=== PATIENT | female | born 1940 | race Caucasian/White ===

== ENCOUNTER 2024-01-19 13:07 | Inpatient (IN) | payer MEDICARE, BC ==
[2024-01-19] MEDS ORDERED: PNEUMONIA PROTOCOL UTILIZED 1 EACH MISC PO PRN (13:33)
--- NOTE | 2024-01-19 13:33 | ED ---
General Adult HPI - General Chief complaint: Nausea/Vomiting/Diarrhea Stated complaint: Pneumonia Time Seen by Provider: 01/19/24 13:15 Source: patient, EMS, RN notes reviewed, old records reviewed Mode of arrival: EMS Limitations: no limitations - History of Present Illness Initial comments: An 83-year-old female who comes to us from [facility]. Patient was seen on Thursday they are told she had pneumonia was sent home on antibiotics. Patient states yesterday she dry heaves a couple of times and then vomited x 1. Patient states since it was getting worse she came back to the hospital today they stated they wanted to come to our hospital because the patient had an elevated lipase and dilated common bile duct on the CAT scan. Patient states they gave her some nausea meds and she is feeling considerably better. Patient denies any abdominal pain at this time. Patient states she is never had a fever but she has had pneumonia many times in the past as well. She does have an occasional cough her had the same thing and she believes she got it from him. Review of Systems ROS Statement: Those systems with pertinent positive or pertinent negative responses have been documented in the HPI. ROS Other: All systems not noted in ROS Statement are negative. Past Medical History Past Medical History: Asthma, COPD Past Psychological History: No Psychological Hx Reported Smoking Status: Former smoker Past Alcohol Use History: None Reported Past Drug Use History: None Reported General Exam - General Exam Comments Initial Comments: GENERAL: Patient is well-developed and well-nourished. Patient is nontoxic and well- hydrated and is in mild distress. ENT: Neck is soft and supple. No significant lymphadenopathy is noted. Oropharynx is clear. Moist mucous membranes. Neck has full range of motion without eliciting any pain. EYES: The sclera were anicteric and conjunctiva were pink and moist. Extraocular movements were intact and pupils were equal round and reactive to light. Eyelids were unremarkable. PULMONARY: Unlabored respirations. Good breath sounds bilaterally. No audible rales rhonchi or wheezing was noted. CARDIOVASCULAR: There is a regular rate and rhythm without any murmurs gallops or rubs. ABDOMEN: Soft and nontender with normal bowel sounds. SKIN: Skin is clear with no lesions or rashes and otherwise unremarkable. NEUROLOGIC: Patient is alert and oriented x3. Cranial nerves II through XII are grossly intact. Motor and sensory are also intact. Normal speech, volume and content. Symmetrical smile. MUSCULOSKELETAL: Normal extremities with adequate strength and full range of motion. LYMPHATICS: No significant lymphadenopathy is noted PSYCHIATRIC: Normal psychiatric evaluation. Limitations: no limitations Course Vital Signs 01/19/24 13:15 Temperature 98.1 F Pulse Rate 64 Respiratory 18 Rate Blood Pressure 121/69 O2 Sat by Pulse 92 L Oximetry Medical Decision Making - Medical Decision Making Was pt. sent in by a medical professional or institution (, PA, CRUSHING MACHINE OPERATOR, urgent care, hospital, or long term...) When possible be specific @ -Sent to us by [facility] Did you speak to anyone other than the patient for history (EMS, parent, family, police, friend...)? What history was obtained from this source @ -ER physician at [place] spoke with us about the patient prior to arrival Did you review nursing and triage notes (agree or disagree)? Why? @ -I reviewed and agree with nursing and triage notes Were old charts reviewed (outside hosp., previous admission, EMS record, old EKG, old radiological studies, urgent care reports/EKG's, long term records)? Report findings @ -I reviewed all the outside hospital lab work and charting and CAT scan and x- ray and this patient Differential Diagnosis (chest pain, altered mental status, abdominal pain women, abdominal pain men, vaginal bleeding, weakness, fever, dyspnea, syncope, headache, dizziness, GI bleed, back pain, seizure, CVA, palpatations, mental health, musculoskeletal)? @ -Differential Dyspnea: Coronary syndrome, arrhythmia, tamponade, asthma, COPD, pulmonary embolism, pneumonia, pneumothorax, pulmonary effusion, anaphylaxis, diabetic ketoacidosis, flailed chest, pulmonary contusion, diaphragmatic rupture, anemia, neuromuscular, this is not meant to be an all-inclusive list. EKG interpreted by me (3pts min.). @ -As above X-rays interpreted by me (1pt min.). @ -None done CT interpreted by me (1pt min.). @ -None done U/S interpreted by me (1pt. min.). @ -None done What testing was considered but not performed or refused? (CT, X-rays, U/S, labs)? Why? @ -None What meds were considered but not given or refused? Why? @ -None Did you discuss the management of the patient with other professionals (professionals i.e. , PA, CRUSHING MACHINE OPERATOR, lab, RT, psych nurse, rn social work, travel professional, teacher, security officer, case filler)? Give summary @ -No Was smoking cessation discussed for >3mins.? @ -No Was critical care preformed (if so, how long)? @ -No Were there social determinants of health that impacted care today? How? (Homelessness, low income, unemployed, alcoholism, drug addiction, transportation, low edu. Level, literacy, decrease access to med. care, long term, rehab)? @ -No Was there de-escalation of care discussed even if they declined (Discuss DNR or withdrawal of care, Hospice)? DNR status @ -No What co-morbidities impacted this encounter? (DM, HTN, Smoking, COPD, CAD, Cancer, CVA, ARF, Chemo, Hep., AIDS, mental health diagnosis, sleep apnea, morbid obesity)? @ -None Was patient admitted / discharged? Hospital course, mention meds given and route, prescriptions, significant lab abnormalities, going to OR and other pertinent info. @ -I spoke with [facility] hospitalist and they agreed to admit the patient I admitted the patient for pneumonia and I repeated lab work for the elevated lipase. Also received a fluid bolus here Undiagnosed new problem with uncertain prognosis? @ -No Drug Therapy requiring intensive monitoring for toxicity (Heparin, Nitro, Insulin, Cardizem)? @ -No Were any procedures done? @ -No Diagnosis/symptom? @ -Pneumonia Acute, or Chronic, or Acute on Chronic? @ -Acute Uncomplicated (without systemic symptoms) or Complicated (systemic symptoms)? @ -Complicated Side effects of treatment? @ -No Exacerbation, Progression, or Severe Exacerbation? @ -No Poses a threat to life or bodily function? How? (Chest pain, [place], [place], pneumonia, PE, COPD, DKA, ARF, appy, cholecystitis, CVA, Diverticulitis, Homicidal, Suicidal, threat to staff... and all critical care pts) @ -No Diagnosis/symptom? @ -Elevated lipase Acute, or Chronic, or Acute on Chronic? @ -Acute Uncomplicated (without systemic symptoms) or Complicated (systemic symptoms)? @ -complicated Side effects of treatment? @ -None Exacerbation, Progression, or Severe Exacerbation] @ -No Poses a threat to life or bodily function? @ -No Diagnosis/symptom? @ -Acute vomiting Acute, or Chronic, or Acute on Chronic? @ -Acute Uncomplicated (without systemic symptoms) or Complicated (systemic symptoms)? @ -Uncomplicated Side effects of treatment? @ -None Exacerbation, Progression, or Severe Exacerbation] @ -No Poses a threat to life or bodily function? @ -No Disposition Clinical Impression: Vomiting, Elevated lipase, Pneumonia Disposition: ADMITTED IP TO THIS HOSP Referrals: Tomás Madsen MD [Primary Care Provider] - 1-2 days Time of Disposition: 13:33
[2024-01-19] MEDS ORDERED: ALBUTEROL HFA INHALER INHALATION PRN (15:15)
[2024-01-19 16:00] LABS: Basophils % (A) 0 %; Eosinophils # (A) 0.2 k/uL (0-0.7); Eosinophils % (A) 3 %; HCT 31.4 % (34.0-46.0); HGB 9.8 gm/dL (11.4-16.0); Hypochromasia Slight; Lymphocytes # (A) 0.5 k/uL (1.0-4.8); Lymphocytes % (A) 9 %; MCH 32.9 pg (25.0-35.0); MCHC 31.3 g/dL (31.0-37.0); MCV 105.4 fL (80.0-100.0); Macrocytosis Slight; Mean Platelet Volume 7.6; Monocytes # (A) 0.2 k/uL (0-1.0); Monocytes % (A) 4 %; Neutrophils % (A) 83 %; Platelet Count 272 k/uL (150-450); RBC 2.98 m/uL (3.80-5.40); RDW 12.7 % (11.5-15.5); WBC 6.1 k/uL (3.8-10.6)
[2024-01-19] MEDS: SODIUM CHLORIDE 0.9% 1,000 ML IV SCH (16:07)
[2024-01-19 16:46] LABS: ALT 26 U/L (4-34); AST 45 U/L (14-36); African American GFR (CKD) 87 (>60 ml/min/1.73 sqM); Albumin 3.1 g/dL (3.5-5.0); Alkaline Phosphatase 54 U/L (38-126); Anion Gap 8 mmol/L; Blood Urea Nitrogen 35 mg/dL (7-17); Calcium 7.8 mg/dL (8.4-10.2); Carbon Dioxide 18 mmol/L (22-30); Chloride 109 mmol/L (98-107); Glucose 84 mg/dL (74-99); Non-African American GFR(CKD) 76 (>60 ml/min/1.73 sqM); Sodium 135 mmol/L (137-145); Total Bilirubin 0.7 mg/dL (0.2-1.3); Total Protein 6.1 g/dL (6.3-8.2)
[2024-01-19] MEDS: SYMBICORT 80-4.5 MCG INHALER INHALATION SCH (20:03)
[2024-01-19] MEDS: PRAVASTATIN SODIUM 20 MG TAB PO SCH (20:19)
[2024-01-20] MEDS: AZITHROMYCIN 500 MG TAB PO SCH (07:49)
[2024-01-20] MEDS: LEVOTHYROXINE 88 MCG TAB PO SCH (07:49)
[2024-01-20] MEDS: EZETIMIBE 10 MG TAB PO SCH (07:49)
[2024-01-20] MEDS: VENLAFAXINE HCL ER 37.5 MG CAP PO SCH (07:49)
[2024-01-20] MEDS: MONTELUKAST 10 MG TAB PO SCH (07:49)
[2024-01-20 08:42] LABS: HCT 28.2 % (37.2-46.3); HGB 9.4 g/dL (12.0-15.0); MCH 35.5 pg (27.0-32.0); MCHC 33.3 g/dL (32.0-37.0); MCV 106.4 FL (80.0-97.0); Mean Platelet Volume 8.8 FL (9.5-12.2); NRBC Per 100 WBC 0 X 10*3/uL (0.00-0.01); Platelet Count 255 X 10*3/uL (140-440); RBC 2.65 X 10*6/uL (4.10-5.20); RDW 13.5 % (11.5-14.5); WBC 7.51 X 10*3/uL (4.50-10.00)
--- NOTE | 2024-01-20 08:43 | XR ---
EXAMINATION TYPE: XR chest 2V DATE OF EXAM: 01/20/2024 6:29 AM CLINICAL INDICATION:Female, 83 years old with history of pneumonia; COMPARISON: CT 01/19/2024. TECHNIQUE: XR chest 2V Frontal and lateral views of the chest. FINDINGS: Lungs/Pleura: Increased interstitial lung markings in lung bases seen on CT from one day prior. There is no evidence of pleural effusion, focal consolidation, or pneumothorax. Pulmonary vascularity: Unremarkable. Heart/mediastinum: Cardiomediastinal silhouette is unremarkable. Musculoskeletal: No acute osseous pathology. IMPRESSION: Chronic lung changes in the base as seen on prior CT. Superimposed infection is not excluded.
[2024-01-20] MEDS: TIMOLOL 0.5% OPHTH DROPS 5 ML BTL BOTH EYES SCH (08:48)
[2024-01-20 08:50] LABS: ALT 25 U/L (8-44); AST 21 U/L (13-35); Albumin 3.2 g/dL (3.8-4.9); Albumin/Globulin Ratio 1.33 Ratio (1.60-3.17); Alkaline Phosphatase 63 U/L (41-126); BUN/Creat Ratio 35.57 Ratio (12.00-20.00); Blood Urea Nitrogen 24.9 mg/dL (9.0-27.0); Calcium 7.8 mg/dL (8.7-10.3); Carbon Dioxide 19.6 mmol/L (21.6-31.8); Chloride 104 mmol/L (96-109); Globulin 2.4 g/dL (1.6-3.3); Glucose 81 mg/dL (70-110); Potassium 3.4 mmol/L (3.5-5.5); Sodium 135 mmol/L (135-145); Total Bilirubin <0.2 mg/dL (0.3-1.2); Total Protein 5.6 g/dL (6.2-8.2)
[2024-01-20 09:57] LABS: Basophils # (A) 0.02 X 10*3/uL (0.00-0.10); Basophils % (A) 0.3 %; Eosinophils # (A) 0.24 X 10*3/uL (0.04-0.35); Eosinophils % (A) 3.2 %; Lymphocytes # (A) 0.87 X 10*3/uL (0.90-5.00); Lymphocytes % (A) 11.6 %; Macrocytosis (M) 2+; Monocytes # (A) 0.44 X 10*3/uL (0.20-1.00); Monocytes % (A) 5.9 %; Neutrophils % (A) 78.5 %
[2024-01-20] MEDS: SPIRONOLACTONE-HCTZ 25-25MG 1 EACH TAB PO SCH (11:31)
--- NOTE | 2024-01-20 11:37 | P.CONS ---
History of Present Illness - Reason for Consult Consult date: 01/20/24 Pancreatitis, dilated bile duct Requesting physician: Derrick Lipscomb - Chief Complaint Weakness, nausea - History of Present Illness This is a pleasant 83-year-old female with recent hospitalization to [facility] for pneumonia and started on Augmentin and doxycycline and sent home on 01/17/2024. Patient states she continued to feel weak, had nausea with some dry heaves after being on her antibiotics and went back to the emergency department. She had lab work done that showed very mild elevation of her lipase at 468 with without elevation of LFTs. They did a CAT scan of chest abdomen pelvis which had reported dilation of central and peripheral bile ducts likely related to prior cholecystectomy also noted on prior CT scan of 2020. Common bile duct 2.1 cm and pancreatic duct dilated at the and could not process measuring 7 mm. Patient was transferred to [facility] for gastroenterology consultation for elevated lipase and dilated common bile duct on CT scan. Patient states she never had any abdominal pain, she had a couple episodes of nausea with dry heaves but no actual vomiting. She has been afebrile. She has been hospitalized multiple times for pneumonia. No previous history of pancreatitis. She has history of remote cholecystectomy. She currently denies any abdominal pain, nausea or vomiting. Has some shortness of breath but states this has been ongoing with her pneumonia. Labs from [facility] 01/19/2024 WBC 12.6 hemoglobin 10.7 platelet count 236,007 sodium 130 potassium 3.5 BUN 47 creatinine 1.0 alkaline phosphatase 82 ALT 30 AST 36 total bilirubin 0.5 lipase 486 Today's labs WBC 7.5 hemoglobin 9.4 platelet count 255,000 sodium 135 potassium 3.4 BUN 24 creatinine 0.7 total bilirubin less than 0.2 AST 21 ALT 25 alkaline phosphatase 63 lipase 16 Review of Systems REVIEW OF SYSTEMS: CARDIOPULMONARY: No chest pain. Positive shortness of breath. Gastrointestinal: No abdominal pain. No nausea or vomiting. No hematemesis, coffee-ground emesis. No rectal bleeding, or melena. GENITOURINARY: No dysuria or hematuria. MUSCULOSKELETAL: Reports normal range of motion., Joint pain. SKIN: No rashes. No jaundice. ENDOCRINE: No chills, fevers. No excessive weight gain or loss. No polydipsia or polyuria. PSYCHIATRIC: Unremarkable. NEUROLOGY: No change in mental status. Denies dizziness, headache. ENT: Vision unremarkable. CONSTITUTIONAL: No recent weight loss. No fever, chills, night sweats. Generalized weakness. Past Medical History Past Medical History: Asthma, COPD Additional Past Medical History / Comment(s): colitis, gluacoma right eye, [place] wears hearing aids. History of Any Multi-Drug Resistant Organisms: None Reported Past Psychological History: No Psychological Hx Reported Smoking Status: Former smoker Past Alcohol Use History: None Reported Past Drug Use History: None Reported Medications and Allergies Home Medications Medication Instructions Recorded Confirmed Type Albuterol Sulfate [Albuterol 2 puff PO RT-Q6H PRN 01/19/24 01/19/24 History Sulfate Hfa] Alendronate Sodium [Fosamax] 70 mg PO NGUYEN 01/19/24 01/19/24 History Amoxic-Pot Clav 875-125Mg 1 tab PO BID 01/19/24 01/19/24 History [Augmentin 875-125] Doxycycline Hyclate 100 mg PO BID 01/19/24 01/19/24 History Ezetimibe [Zetia] 10 mg PO DAILY 01/19/24 01/19/24 History Famotidine [Pepcid] 20 mg PO DAILY 01/19/24 01/19/24 History Fluticasone Propion/Salmeterol 2 puff INHALATION RT-BID 01/19/24 01/19/24 History [Fluticasone-Salmeterol 250-50] Latanoprost [Latanoprost 0.005%] 1 drop BOTH EYES HS 01/19/24 01/19/24 History Levothyroxine Sodium [Synthroid] 88 mcg PO DAILY 01/19/24 01/19/24 History Montelukast [Singulair] 10 mg PO DAILY 01/19/24 01/19/24 History Pravastatin Sodium [Pravachol] 20 mg PO HS 01/19/24 01/19/24 History Spironolactone-Hctz 25-25Mg 1 tab PO DAILY 01/19/24 01/19/24 History [Aldactazide 25-25Mg] Timolol 0.5% Ophth Soln [Timoptic 1 drop BOTH EYES DAILY 01/19/24 01/19/24 History 0.5% Ophth Soln] Venlafaxine HCl ER [Effexor Xr] 37.5 mg PO DAILY 01/19/24 01/19/24 History Allergies Allergy/AdvReac Type Severity Reaction Status Date / Time No Known Allergies Allergy Verified 01/19/24 13:49 Physical Exam Vitals: Vital Signs Temp Pulse Pulse Resp BP BP Pulse Ox 01/20/24 00:29 97.7 F 77 20 135/70 90 L 01/19/24 18:35 97.6 F 61 18 152/62 97 01/19/24 18:14 62 18 134/87 97 01/19/24 16:08 60 18 133/65 95 01/19/24 15:43 71 18 121/65 94 L 01/19/24 13:15 98.1 F 64 18 121/69 92 L Intake and Output 01/19/24 01/20/24 01/20/24 22:59 06:59 14:59 Other: Voiding Method Toilet # Voids 4 Weight 39.916 kg General appearance: The patient is alert, oriented, appears in no acute distress. HET: Head is normocephalic and atraumatic. Conjunctiva pink. Sclera anicteric. Neck: Supple without lymphadenopathy. Trachea midline. Heart: Regular. Lungs: Equal expansion, normal respiratory effort. Abdomen: Soft, nontender, nondistended. Skin: No rashes. No jaundice. Extremities: Normal skin color and turgor. No pedal edema. Neurological: No focal deficits. Alert and oriented x3. Results CBC & Chem 7: 01/20/24 03:03 01/20/24 03:03 Labs: Abnormal Lab Results - Last 24 Hours (Table) 01/19/24 01/19/24 Range/Units 15:39 15:39 RBC 2.98 L (3.80-5.40) m/uL Hgb 9.8 L (11.4-16.0) gm/dL Hct 31.4 L (34.0-46.0) % MCV 105.4 H (80.0-100.0) fL Lymphocytes # 0.5 L (1.0-4.8) k/uL Sodium 135 L (137-145) mmol/L Chloride 109 H (98-107) mmol/L Carbon Dioxide 18 L (22-30) mmol/L BUN 35 H (7-17) mg/dL Calcium 7.8 L (8.4-10.2) mg/dL AST 45 H (14-36) U/L Total Protein 6.1 L (6.3-8.2) g/dL Albumin 3.1 L (3.5-5.0) g/dL Comments: CT abdomen pelvis with IV contrast done 01/19/2024 at [facility] Impression reads subtle linear densities in the anterior right upper lobe since the previous examination and may represent atelectasis or developing infiltrate. Bronchiectatic changes at the lung bases bilaterally with peribronchial thickening in the left lower lobe and may be related to inflammatory process. There are patchy opacities also noted in the lingula related to mild inflammatory process. There is mucous plugging also suggested. Reactive stable mediastinal adenopathy. No acute pulmonary embolism. Status postcholecystectomy. The common bile duct is dilated at 2.1 cm as previously. The pancreatic duct at that cannot process is also dilated at 7 mm. Please correlate with clinical and laboratory data. Consider MRCP examination. Sigmoid diverticulosis without any surrounding inflammatory change. There is fluid within the ascending colon and few scattered small bowel loops. These findings may be related to diarrhea enterocolitis please correlate clinically. Assessment and Plan (1) Dilation of biliary tract Narrative/Plan: 83-year-old female was being seen at her local hospital in [place] for recent diagnosis of pneumonia was discharged from the emergency department Augmentin and doxycycline. The following day she was continuing to feel weak and had some nausea and dry heaves after starting her antibiotics. Going back to the emergency department she had a mildly elevated lipase of [address] abdomen and pelvis which showed CBD dilation and pancreatic duct dilation which was noted on CT of the abdomen dated November 30, 2020 according to report. This in a patient without any abdominal pain and no elevated LFTs, these are likely chronic findings. Will order MRCP to evaluate possible ampullary lesion however this can be done as an outpatient. Current Visit: Yes Status: Acute Code(s): K83.8 - OTHER SPECIFIED DISEASES OF BILIARY TRACT SNOMED Code(s): 256354286 (2) Elevated lipase Narrative/Plan: Mildly elevated lipase unclear etiology, likely dehydration, no abdominal pain and no evidence of pancreatitis on CT of abdomen. Current Visit: Yes Status: Acute Code(s): R74.8 - ABNORMAL LEVELS OF OTHER SERUM ENZYMES SNOMED Code(s): 495739110 (3) Nausea and vomiting Narrative/Plan: Patient with nausea and dry heaves times 2 episodes prior to going to the emergency department and [place]. Symptoms completely resolved with antiemetics. No further nausea or vomiting. Likely secondary to antibiotic therapy. Current Visit: Yes Status: Acute Code(s): R11.2 - NAUSEA WITH VOMITING, UNSPECIFIED SNOMED Code(s): 42222638 (4) Pneumonia Current Visit: Yes Status: Acute Code(s): J18.9 - PNEUMONIA, UNSPECIFIED ORGANISM SNOMED Code(s): 606471863 Plan: 1. Continue symptomatic and supportive care 2. Antiemetics as needed 3. Repeat CBC CMP, lipase 4. MRCP ordered to evaluate for possible ampullary lesion. However if plan is for discharge patient can have this done as an outpatient, as she is requesting to be discharged. 5. Full liquid diet, then advance as tolerated 6. No plans on endoscopic evaluation on this patient 7. Rest of medical management per primary medical team Thank you for this consultation, we will continue to follow. Dr. Yvonne Richter I agree with the dictator's note, documented as a scribe by Carmen Villegas.
--- NOTE | 2024-01-20 13:00 | P.HPIM ---
History of Present Illness H&P Date: 01/20/24 History of present illness; patient is a 83-year-old lady with past medical history significant for COPD, hyper tension, hyperlipidemia who was sent as a transfer from [facility]. She stated that she initially presented to the [facility] a couple of days ago at which time she was diagnosed with pneumonia and was discharged on antibiotics. Patient stated that after going home she was having vomiting and was feeling nausea. Patient did not feel well so she presented back to [facility] at which time did a CT of the abdomen and blood work. Blood work showed elevated lipase in the wanted patient to be transferred to [facility] for further evaluation by GI. Patient denies any chest pain. There is no complaint shortness of breath. Denies any lightheaded or dizziness. Patient was complaining of low-grade fevers prior to coming. Because of this, patient was transferred to [facility] and admitted to internal medicine service REVIEW OF SYSTEMS: CONSTITUTIONAL: No fever, no malaise, no fatigue. HEENT: No recent visual problems or hearing problems. Denied any sore throat. CARDIOVASCULAR: No chest pain, orthopnea, PND, no palpitations, no syncope. PULMONARY: No shortness of breath, no cough, no hemoptysis. GASTROINTESTINAL: As mentioned above NEUROLOGICAL: No headaches, no weakness, no numbness. HEMATOLOGICAL: Denies any bleeding or petechiae. GENITOURINARY: Denies any burning micturition, frequency, or urgency. MUSCULOSKELETAL/RHEUMATOLOGICAL: Denies any joint pain, swelling, or any muscle pain. ENDOCRINE: Denies any polyuria or polydipsia. The rest of the 14-point review of systems is negative. PHYSICAL EXAMINATION: GENERAL: The patient is alert and oriented x3, not in any acute distress. Well developed, well nourished. HEENT: Pupils are round and equally reacting to light. EOMI. No scleral icterus. No conjunctival pallor. Normocephalic, atraumatic. No pharyngeal erythema. No thyromegaly. CARDIOVASCULAR: S1 and S2 present. No murmurs, rubs, or gallops. PULMONARY: Chest is clear to auscultation, no wheezing or crackles. ABDOMEN: Soft, nontender, nondistended, normoactive bowel sounds. No palpable organomegaly. MUSCULOSKELETAL: No joint swelling or deformity. EXTREMITIES: No cyanosis, clubbing, or pedal edema. NEUROLOGICAL: Gross neurological examination did not reveal any focal deficits. SKIN: No rashes. Assessment and plan Nausea and vomiting Elevated lipase, symptoms not suggestive of acute pancreatitis Dilated common bile duct Bacterial pneumonia Hypertension Hyperlipidemia COPD Monitor vital signs Monitor CBC Monitor CMP Start IV fluids Start antiemetics Start with Rocephin azithromycin Ordered MRCP Resume home meds Consult GI Labs and medication were reviewed.. Continue same treatment. Continue with symptomatic treatment. Resume home medication. Monitor labs and vitals. DVT and GI prophylaxis. Further recommendations as per clinical course of the patient Dictation was produced using [employer] dictation software. please excuse any grammatical, word or spelling errors. Past Medical History Past Medical History: Asthma, COPD Additional Past Medical History / Comment(s): colitis, gluacoma right eye, [place] wears hearing aids. History of Any Multi-Drug Resistant Organisms: None Reported Past Psychological History: No Psychological Hx Reported Smoking Status: Former smoker Past Alcohol Use History: None Reported Past Drug Use History: None Reported Medications and Allergies Home Medications Medication Instructions Recorded Confirmed Type Albuterol Sulfate [Albuterol 2 puff PO RT-Q6H PRN 01/19/24 01/19/24 History Sulfate Hfa] Alendronate Sodium [Fosamax] 70 mg PO NGUYEN 01/19/24 01/19/24 History Amoxic-Pot Clav 875-125Mg 1 tab PO BID 01/19/24 01/19/24 History [Augmentin 875-125] Doxycycline Hyclate 100 mg PO BID 01/19/24 01/19/24 History Ezetimibe [Zetia] 10 mg PO DAILY 01/19/24 01/19/24 History Famotidine [Pepcid] 20 mg PO DAILY 01/19/24 01/19/24 History Fluticasone Propion/Salmeterol 2 puff INHALATION RT-BID 01/19/24 01/19/24 History [Fluticasone-Salmeterol 250-50] Latanoprost [Latanoprost 0.005%] 1 drop BOTH EYES HS 01/19/24 01/19/24 History Levothyroxine Sodium [Synthroid] 88 mcg PO DAILY 01/19/24 01/19/24 History Montelukast [Singulair] 10 mg PO DAILY 01/19/24 01/19/24 History Pravastatin Sodium [Pravachol] 20 mg PO HS 01/19/24 01/19/24 History Spironolactone-Hctz 25-25Mg 1 tab PO DAILY 01/19/24 01/19/24 History [Aldactazide 25-25Mg] Timolol 0.5% Ophth Soln [Timoptic 1 drop BOTH EYES DAILY 01/19/24 01/19/24 History 0.5% Ophth Soln] Venlafaxine HCl ER [Effexor Xr] 37.5 mg PO DAILY 01/19/24 01/19/24 History Allergies Allergy/AdvReac Type Severity Reaction Status Date / Time No Known Allergies Allergy Verified 01/19/24 13:49 Physical Exam Vitals: Vital Signs Temp Pulse Pulse Resp BP BP Pulse Ox 01/20/24 06:55 98.9 F 60 16 121/60 91 L 01/20/24 00:29 97.7 F 77 20 135/70 90 L 01/19/24 18:35 97.6 F 61 18 152/62 97 01/19/24 18:14 62 18 134/87 97 01/19/24 16:08 60 18 133/65 95 01/19/24 15:43 71 18 121/65 94 L 01/19/24 13:15 98.1 F 64 18 121/69 92 L Intake and Output 01/19/24 01/20/24 01/20/24 22:59 06:59 14:59 Other: Voiding Method Toilet # Voids 4 1 Weight 39.916 kg Results CBC & Chem 7: 01/20/24 03:03 01/20/24 03:03 Labs: Abnormal Lab Results - Last 24 Hours (Table) 01/19/24 01/19/24 01/20/24 Range/Units 15:39 15:39 03:03 RBC 2.98 L 2.65 L (3.80-5.40) m/uL Hgb 9.8 L 9.4 L (11.4-16.0) gm/dL Hct 31.4 L 28.2 L (34.0-46.0) % MCV 105.4 H 106.4 H (80.0-100.0) fL MCH 35.5 H (27.0-32.0) pg MPV 8.8 L (9.5-12.2) FL Lymphocytes # 0.5 L (1.0-4.8) k/uL Sodium 135 L (137-145) mmol/L Potassium (3.5-5.5) mmol/L Chloride 109 H (98-107) mmol/L Carbon Dioxide 18 L (22-30) mmol/L BUN 35 H (7-17) mg/dL BUN/Creatinine Ratio (12.00-20.00) Ratio Calcium 7.8 L (8.4-10.2) mg/dL Total Bilirubin (0.3-1.2) mg/dL AST 45 H (14-36) U/L Total Protein 6.1 L (6.3-8.2) g/dL Albumin 3.1 L (3.5-5.0) g/dL Albumin/Globulin Ratio (1.60-3.17) Ratio / Range/Units 03:03 RBC (3.80-5.40) m/uL Hgb (11.4-16.0) gm/dL Hct (34.0-46.0) % MCV (80.0-100.0) fL MCH (27.0-32.0) pg MPV (9.5-12.2) FL Lymphocytes # (1.0-4.8) k/uL Sodium (137-145) mmol/L Potassium 3.4 L (3.5-5.5) mmol/L Chloride (98-107) mmol/L Carbon Dioxide 19.6 L (22-30) mmol/L BUN (7-17) mg/dL BUN/Creatinine Ratio 35.57 H (12.00-20.00) Ratio Calcium 7.8 L (8.4-10.2) mg/dL Total Bilirubin <0.2 L (0.3-1.2) mg/dL AST (14-36) U/L Total Protein 5.6 L (6.3-8.2) g/dL Albumin 3.2 L (3.5-5.0) g/dL Albumin/Globulin Ratio 1.33 L (1.60-3.17) Ratio
[2024-01-20] MEDS: LOPERAMIDE 2 MG CAP PO PRN (14:04)
[2024-01-20] MEDS: ONDANSETRON 4 MG/2 ML VIAL IVP PRN (23:18)
--- NOTE | 2024-01-21 13:17 | MR ---
EXAMINATION TYPE: MR MRCP DATE OF EXAM: 01/21/2024 12:09 PM CLINICAL INDICATION:Female, 83 years old with history of CBD dilation and pancreatic duct dilation on CT; PHH, CBD dilation and pancreatic duct dilation on CT. Rule out ampullary lesion, CBD dilation si nce 2020. COMPARISON: 01/19/2024. TECHNIQUE: Multi planar, T2-weighted imaging with and without fat saturation and chemical shift imag ing was performed of the abdomen. Then, heavily T2 weighted imaging (half-Fourier acquisition single- shot turbo spin-echo) was utilized in order to study the biliary system. Maximum intensity projectio n images were reconstructed from the original data of the biliary tree. 3D images were created on a [employer] work station. No Gadolinium given. FINDINGS: Lower Thorax: No evidence for acute process. The heart is mildly enlarged for size. Left lower lobe i ncreased signal. MRCP: * The intrahepatic ducts are dilated * The common hepatic duct measures 19 mm in size. * The common bile duct at the level of the pancreatic head measures 18 mm in size. * The pancreatic duct is dilated up to 7 mm. * The gallbladder is surgically absent there is dilation of the biliary system. Abdomen: Liver: No evidence for hepatic steatosis or cirrhosis. Pancreas: Main pancreatic duct is dilated measuring up to 7 mm extending into the tail. No evidence f or solid mass. Spleen: Normal for size. Adrenal glands: Unremarkable. Kidneys: No evidence for obstructive uropathy. No suspicious renal masses. Stomach and Bowel: No evidence for bowel wall thickening or evidence for obstruction. Retroperitoneum/Peritoneum: No evidence of pneumoperitoneum or free fluid. Vasculature: No aortic aneurysm. Musculoskeletal: Multilevel degeneration changes spine with scoliotic curvature. Lymph Nodes: No gross evidence for lymphadenopathy. Abdominal wall: Unremarkable. IMPRESSION: 1. Dilation of the extrahepatic and intrahepatic biliary system as well as the main pancreatic duct. While findings could represent postcholecystectomy physiology given no definitive lesion identified. Consider ERCP. No obvious mass on noncontrast MRI visualized. 2. No evidence to suggest ductal stricture or choledocholithiasis. 3. Left lower lobe signal within the lung correlate for pneumonia.
--- NOTE | 2024-01-21 15:03 | P.PN ---
Progress Note - Text Progress Note Date: 01/21/24 History of present illness; patient is a 83-year-old lady with past medical history significant for COPD, hyper tension, hyperlipidemia who was sent as a transfer from [facility]. She stated that she initially presented to the [facility] a couple of days ago at which time she was diagnosed with pneumonia and was discharged on antibiotics. Patient stated that after going home she was having vomiting and was feeling nausea. Patient did not feel well so she presented back to [facility] at which time did a CT of the abdomen and blood work. Blood work showed elevated lipase in the wanted patient to be transferred to [facility] for further evaluation by GI. Patient denies any chest pain. There is no complaint shortness of breath. Denies any lightheaded or dizziness. Patient was complaining of low-grade fevers prior to coming. Because of this, patient was transferred to [facility] and admitted to internal medicine service January 20: In bed. Patient said she had initially presented to [facility] with cough and shortness of breath. She has a history of microscopic colitis diagnosed a few years ago. Flatus does happen off-and-on. Takes [id number] medications. Currently being treated for pneumonia. Salted for nausea Moe elevation of lipase. To 2.1 cm. And pancreatic duct dilated. Has had prior cholecystectomy. MRCP. Liver appears normal. Main pancreatic duct dilated 7 mm extending into the tail. No mass reported Active Medications Albuterol Sulfate (Albuterol Hfa Inhaler) 2 puff INHALATION RT-Q6H PRN PRN Reason: Shortness Of Breath Budesonide/Formoterol Fumarate (Symbicort 80-4.5 Mcg Inhaler) 2 puff INHALATION RT-BID [facility] Last Admin: 01/21/24 09:10 Dose: 2 puff Ezetimibe (Ezetimibe 10 Mg Tab) 10 mg PO DAILY [facility] Last Admin: 01/21/24 07:45 Dose: 10 mg HCTZ/Spironolactone (Spironolactone-Hctz 25-25mg 1 Each Tab) 1 each PO DAILY [facility] Last Admin: 01/21/24 07:45 Dose: 1 each Sodium Chloride (Saline 0.9%) 1,000 mls @ 50 mls/hr IV .Q20H [facility] Last Admin: 01/21/24 06:08 Dose: Not Given Ceftriaxone Sodium 2 gm/ (Sodium Chloride) 50 mls @ 100 mls/hr IVPB Q24HR [facility]; Protocol Stop: 01/23/24 09:29 Last Admin: 01/21/24 07:46 Dose: 100 mls/hr Levothyroxine Sodium (Levothyroxine 88 Mcg Tab) 88 mcg PO DAILY [facility] Last Admin: 01/21/24 07:45 Dose: 88 mcg Loperamide HCl (Loperamide 2 Mg Cap) 2 mg PO QID PRN PRN Reason: Diarrhea Last Admin: 01/20/24 22:44 Dose: 2 mg Miscellaneous Information (Pneumonia Protocol Utilized 1 Each Misc) 1 each PO ONCE PRN PRN Reason: Per Protocol Montelukast Sodium (Montelukast 10 Mg Tab) 10 mg PO DAILY [facility] Last Admin: 01/21/24 07:45 Dose: 10 mg Ondansetron HCl (Ondansetron 4 Mg/2 Ml Vial) 4 mg IVP Q8HR PRN PRN Reason: Nausea And Vomiting Last Admin: 01/20/24 23:18 Dose: 4 mg Pravastatin Sodium (Pravastatin Sodium 20 Mg Tab) 20 mg PO HS [facility] Last Admin: 01/20/24 22:44 Dose: 20 mg Timolol Maleate (Timolol 0.5% Ophth Drops 5 Ml Btl) 1 drops BOTH EYES DAILY [facility] Last Admin: 01/21/24 07:46 Dose: 1 drops Venlafaxine HCl (Venlafaxine Hcl Er 37.5 Mg Cap) 37.5 mg PO DAILY [facility] Last Admin: 01/21/24 07:45 Dose: 37.5 mg On examination: VITAL SIGNS: [18, 120/68, 90% room air] GENERAL APPEARANCE: 0.2, thin built laying in bed a bit tired HEENT: Normal external appearance of nose and ear. Oral cavity normal EYES: Pupils equal. Conjunctiva normal. NECK: JVD not raised. Mass not palpable. RESPIRATORY: Respiratory effort increased. Lungs worse crackles on both the sides CARDIOVASCULAR: First and second sounds normal. No edema. ABDOMEN: Soft. Liver and spleen not palpable. No tenderness. No mass palpable. PSYCHIATRY: Alert and oriented x3. Mood and affect normal. INVESTIGATIONS, reviewed in the clinical context: Cholangiopancreatography MRI: Some dilatation of intra and extrahepatic ducts and dilatation of the pancreatic duct. No mass reported. Liver reported normal texture January 20, 2024: White count 7.5 hemoglobin 9.4 platelets 255 sodium 135 potassium 3.4 creatinine 0.7 Urine Legionella antigen negative Lipase 16 Chest x-ray showing some chronic changes at the bases Assessment and plan: -Nausea and vomiting, with some elevation of lipase at an outside facility. GI consulted. Patient on MRCP found to have dilated intra and extrahepatic ducts. But no mass or stone reported. -Bacterial pneumonia IV ceftriaxone -Hypertension Aldactazide -Hyperlipidemia Pravachol, Zetia -COPD Symbicort. Ventolin HFA -Hypothyroid Synthroid 88 mcg a day -Coarse crackles both bases. Rule out chronic pulmonary fibrosis CT chest high-resolution without contrast Patient advanced to regular diet per GI. CT chest ordered with high-resolution to assess for pulmonary fibrosis. Past Medical History Past Medical History: Asthma, COPD Additional Past Medical History / Comment(s): colitis, gluacoma right eye, [place] wears hearing aids. History of Any Multi-Drug Resistant Organisms: None Reported Past Psychological History: No Psychological Hx Reported Smoking Status: Former smoker Past Alcohol Use History: None Reported Past Drug Use History: None Reported
--- NOTE | 2024-01-21 17:04 | P.PN ---
Subjective Progress Note Date: 01/21/24 Principal diagnosis: Dilated bile duct This is a pleasant 83-year-old female with recent hospitalization to [facility] for pneumonia and started on Augmentin and doxycycline and sent home on 01/17/2024. Patient states she continued to feel weak, had nausea with some dry heaves after being on her antibiotics and went back to the emergency department. She had lab work done that showed very mild elevation of her lipase at 468 with without elevation of LFTs. They did a CAT scan of chest abdomen pelvis which had reported dilation of central and peripheral bile ducts likely related to prior cholecystectomy also noted on prior CT scan of 2020. Common bile duct 2.1 cm and pancreatic duct dilated at the and could not process measuring 7 mm. Patient was transferred to [facility] for gastroenterology consultation for elevated lipase and dilated common bile duct on CT scan. Patient states she never had any abdominal pain, she had a couple episodes of nausea with dry heaves but no actual vomiting. She has been afebrile. She has been hospitalized multiple times for pneumonia. No previous history of pancreatitis. She has history of remote cholecystectomy. She currently denies any abdominal pain, nausea or vomiting. Has some shortness of breath but states this has been ongoing with her pneumonia. Labs from [facility] 01/19/2024 WBC 12.6 he moglobin 10.7 platelet count 236,007 sodium 130 potassium 3.5 BUN 47 creatinine 1.0 alkaline phosphatase 82 ALT 30 AST 36 total bilirubin 0.5 lipase 486 Today's labs WBC 7.5 hemoglobin 9.4 platelet count 255,000 sodium 135 potassium 3.4 BUN 24 creatinine 0.7 total bilirubin less than 0.2 AST 21 ALT 25 alkaline phosphatase 63 lipase 16 01/21/2024 Patient seen and examined undergoing MRCP. No acute changes through the night. No abdominal pain. MRCP completed reporting dilation of extrahepatic and intrahepatic biliary system as well as main pancreatic duct. While findings could represent postcholecystectomy physiology given no definitive lesion identified. Consider ERCP. No obvious mass on noncontrast MRI visualized. No evidence to suggest ductal stricture or choledocholithiasis. Left lower lobe signal within the lung correlate for pneumonia. Objective - Vital Signs Vital signs: Vital Signs Temp 98.7 F 01/21/24 06:48 Pulse 53 L 01/21/24 06:48 Resp 18 01/21/24 06:48 BP 120/68 01/21/24 06:48 Pulse Ox 90 L 01/21/24 06:48 FiO2 Intake & Output 01/20/24 01/21/24 01/21/24 18:59 06:59 18:59 Other: Voiding Method Toilet # Voids 4 6 # Bowel Movements 4 2 - Exam General appearance: The patient is alert, oriented, appears in no acute distress. HET: Head is normocephalic and atraumatic. Conjunctiva pink. Sclera anicteric. Neck: Supple without lymphadenopathy. Abdomen: Soft, nontender, nondistended with bowel sounds. No guarding or rigidity. Extremities: Normal skin color and turgor. No pedal edema Skin: No rashes, no jaundice Neurological: No focal deficits. Alert and oriented. - Labs CBC & Chem 7: 01/20/24 03:03 01/20/24 03:03 Labs: Microbiology - Last 24 Hours (Table) 01/19/24 14:18 Blood Culture - Preliminary Blood 01/19/24 13:45 Blood Culture - Preliminary Blood Assessment and Plan (1) Dilation of biliary tract Narrative/Plan: 83-year-old female was being seen at her local hospital in [place] for recent diagnosis of pneumonia was discharged from the emergency department Augmentin and doxycycline. The following day she was continuing to feel weak and had some nausea and dry heaves after starting her antibiotics. Going back to the emergency department she had a mildly elevated lipase of [address] abdomen and pelvis which showed CBD dilation and pancreatic duct dilation which was noted on CT of the abdomen dated November 30, 2020 according to report. This in a patient without any abdominal pain and no elevated LFTs, these are likely chronic findings. Will order MRCP to evaluate possible ampullary lesion however this can be done as an outpatient. MRCP reviewed there is ductal dilation thought to be post cholecystectomy. No mass or lesion, no choledocholithiasis or stricture. No indication or recommendations for further evaluation with ERCP. Current Visit: Yes Status: Acute Code(s): K83.8 - OTHER SPECIFIED DISEASES OF BILIARY TRACT SNOMED Code(s): 946181684 (2) Elevated lipase Narrative/Plan: Mildly elevated lipase unclear etiology, likely dehydration, no abdominal pain and no evidence of pancreatitis on CT of abdomen. Current Visit: Yes Status: Acute Code(s): R74.8 - ABNORMAL LEVELS OF OTHER SERUM ENZYMES SNOMED Code(s): 753852541 (3) Nausea and vomiting Narrative/Plan: Patient with nausea and dry heaves times 2 episodes prior to going to the emergency department and [place]. Symptoms completely resolved with ant iemetics. No further nausea or vomiting. Likely secondary to antibiotic therapy. Current Visit: Yes Status: Acute Code(s): R11.2 - NAUSEA WITH VOMITING, UNSPECIFIED SNOMED Code(s): 51879857 (4) Pneumonia Current Visit: Yes Status: Acute Code(s): J18.9 - PNEUMONIA, UNSPECIFIED ORGANISM SNOMED Code(s): 617633526 Plan: 1. Continue symptomatic and supportive care 2. Antiemetics as needed 3. MRCP ordered and reviewed 4. Diet as tolerated 5. There is no indication for further gastroenterology workup or evaluation. No plans on ERCP. Thank you for this consultation, patient is cleared from gastroenterology. We will sign off at this time. Dr. Yvonne Richter I agree with the dictator's note, documented as a scribe by Carmen Villegas.
[2024-01-21] MEDS ORDERED: ZINC OXIDE PASTE (Z-GUARD) 1 APPLIC TOPICAL PRN (17:30)
--- NOTE | 2024-01-21 19:36 | CT ---
EXAMINATION TYPE: CT chest wo con DATE OF EXAM: 01/21/2024 COMPARISON: 01/19/2024 HISTORY: possible pulmonary fibrosis CT DLP: 429.7 mGycm, Automated exposure control for dose reduction was used. CONTRAST: None TECHNIQUE: Axial images were obtained at 1 mm thick sections at 10 mm intervals. This will limit po rtions of the examination which may not be visualized within the [id number]. Images were obtained in the prone and supine views. FINDINGS: Portion of the thyroid visualized is normal. No suspicious lung nodules or focal infiltrat es are present. There are increased linear markings at the bilateral lung bases greater on the left. Bronchiectasis i s evident prominent bronchioles to the lower lung chang. Small infiltrates may be within the left mid lung. Example image series 202 images 14 and 16. This is persistent between prone and supine imaging. Follow-up is recommended. There is a 1.0 cm lymph node in the pretracheal space. The ascending aorta diameter at the level of the main pulmonary artery is 3.3 cm. The main pulmonary artery diameter at the bifurcation is 3.9 cm . Correlate for pulmonary hypertension. Limited CT sections are obtained through the upper abdomen. Abdomen is essentially unremarkable. IMPRESSION: 1. Bronchiectasis bilateral lung bases greater on the left. 2. Chronic appearing pulmonary fibrosis bilateral lung bases. 3. Some persistent infiltrate may be within the left upper lung field. Underlying mass is not exclude d. Follow-up is recommended. 4. 1 cm lymph node pretracheal space
[2024-01-22 03:20] VITALS: RESP 16
[2024-01-22] MEDS: AZITHROMYCIN 500 MG TAB PO SCH (07:37)
[2024-01-22 08:35] VITALS: BP 119/69; TEMP 98.5
[2024-01-22 12:54] VITALS: PULSE 64
--- NOTE | 2024-01-22 15:58 | P.DS ---
Providers Date of admission: 01/19/24 14:00 Expected date of discharge: 01/22/24 Attending physician: Abimael Melchor Primary care physician: Tomás Hoyt [facility] Course: History of present illness; patient is a 83-year-old lady with past medical history significant for COPD, hyper tension, hyperlipidemia who was sent as a transfer from [facility]. She stated that she initially presented to the [facility] a couple of days ago at which time she was diagnosed with pneumonia and was discharged on antibiotics. Patient stated that after going home she was having vomiting and was feeling nausea. Patient did not feel well so she presented back to [facility] at which time did a CT of the abdomen and blood work. Blood work showed elevated lipase in the wanted patient to be transferred to [facility] for further evaluation by GI. Patient denies any chest pain. There is no complaint shortness of breath. Denies any lightheaded or dizziness. Patient was complaining of low-grade fevers prior to coming. Because of this, patient was transferred to [facility] and admitted to internal medicine service January 20: In bed. Patient said she had initially presented to [facility] with co ugh and shortness of breath. She has a history of microscopic colitis diagnosed a few years ago. Flatus does happen off-and-on. Takes [id number] medications. Currently being treated for pneumonia. Salted for nausea Moe elevation of lipase. To 2.1 cm. And pancreatic duct dilated. Has had prior cholecystectomy. MRCP. Liver appears normal. Main pancreatic duct dilated 7 mm extending into the tail. No mass reported January 21: Patient in bed comfortable. Diet discussed. CT scan of the chest results discussed with the patient. Shows fibrotic changes and bronchiectasis. Some cough present. Patient has a sql analyst in [place] with whom she will follow- up. Patient finished a course of Ceftin. Discussed Discussion and discharge planning more than 35 minutes Daily On examination: VITAL SIGNS: 98.5, 67, 16, 1 one 9 x 69, 94% room air GENERAL APPEARANCE: Sitting at the edge of the bed HEENT: Normal external appearance of nose and ear. Oral cavity normal EYES: Pupils equal. Conjunctiva normal. NECK: JVD not raised. Mass not palpable. RESPIRATORY: Respiratory effort increased. Lungs coarse crackles on both the sides CARDIOVASCULAR: First and second sounds normal. No edema. ABDOMEN: Soft. Liver and spleen not palpable. No tenderness. No mass palpable. PSYCHIATRY: Alert and oriented x3. Mood and affect normal. INVESTIGATIONS, reviewed in the clinical context: CT chest without contrast-high resolution: [January 21] Bronchiectasis bilateral lung bases greater on the left. Chronic appearing pulmonary fibrosis bilateral lung bases some persistent infiltrate with the left upper lung field. Procalcitonin 0.29 Cholangiopancreatography MRI: Some dilatation of intra and extrahepatic ducts and dilatation of the pancreatic duct. No mass reported. Liver reported normal texture January 20, 2024: White count 7.5 hemoglobin 9.4 platelets 255 sodium 135 potassium 3.4 creatinine 0.7 Urine Legionella antigen negative Lipase 16 Chest x-ray showing some chronic changes at the bases Assessment and plan: -Nausea and vomiting, with some elevation of lipase at an outside facility.: Improved GI consulted. Patient on MRCP found to have dilated intra and extrahepatic ducts. But no mass or stone reported. Tolerating diet -Bacterial pneumonia IV ceftriaxone Ceftin 500 mg twice daily for 5 days -Bilateral bronchiectasis reported in bilateral pulmonary fibrosis Patient to follow-up with her own sql analyst in [facility]. Discussed with patient -Hypertension Aldactazide -Hyperlipidemia Pravachol, Zetia -COPD Symbicort. Ventolin HFA -Hypothyroid Synthroid 88 mcg a day Disposition: Home Past Medical History Past Medical History: Asthma, COPD Additional Past Medical History / Comment(s): colitis, gluacoma right eye, [place] wears hearing aids. History of Any Multi-Drug Resistant Organisms: None Reported Past Psychological History: No Psychological Hx Reported Smoking Status: Former smoker Past Alcohol Use History: None Reported Past Drug Use History: None Reported Plan - Discharge Summary Discharge Rx Participant: No New Discharge Prescriptions: New cefUROXime axetiL [Ceftin] 500 mg PO BID #10 tab Acyclovir [Zovirax] 400 mg PO TID #21 tablet Prochlorperazine [Compazine] 5 mg PO Q8HR PRN #30 tab PRN Reason: Nausea Psyllium Husk (with Sugar) [Metamucil Powder] 0 gm PO BID PRN #575 gm PRN Reason: Diarrhea Continue Alendronate Sodium [Fosamax] 70 mg PO NGUYEN Venlafaxine HCl ER [Effexor XR] 37.5 mg PO DAILY Spironolactone-Hctz 25-25Mg [Aldactazide 25-25 MG] 1 tab PO DAILY Montelukast [Singulair] 10 mg PO DAILY Famotidine [Pepcid] 20 mg PO DAILY Pravastatin Sodium [Pravachol] 20 mg PO HS Ezetimibe [Zetia] 10 mg PO DAILY Fluticasone Propion/Salmeterol [Fluticasone-Salmeterol 250-50] 2 puff INHALATION RT-BID Albuterol Sulfate [Albuterol Sulfate Hfa] 2 puff PO RT-Q6H PRN PRN Reason: Shortness Of Breath Timolol 0.5% Ophth Soln [Timoptic 0.5% Ophth Soln] 1 drop BOTH EYES DAILY Latanoprost [Latanoprost 0.005%] 1 drop BOTH EYES HS Levothyroxine Sodium [Synthroid] 88 mcg PO DAILY Discontinued Doxycycline Hyclate 100 mg PO BID Amoxic-Pot Clav 875-125Mg [Augmentin 875-125] 1 tab PO BID Discharge Medication List Albuterol Sulfate [Albuterol Sulfate Hfa] 2 puff PO RT-Q6H PRN 01/19/24 [History] Alendronate Sodium [Fosamax] 70 mg PO NGUYEN 01/19/24 [History] Ezetimibe [Zetia] 10 mg PO DAILY 01/19/24 [History] Famotidine [Pepcid] 20 mg PO DAILY 01/19/24 [History] Fluticasone Propion/Salmeterol [Fluticasone-Salmeterol 250-50] 2 puff INHALATION RT-BID 01/19/24 [History] Latanoprost [Latanoprost 0.005%] 1 drop BOTH EYES HS 01/19/24 [History] Levothyroxine Sodium [Synthroid] 88 mcg PO DAILY 01/19/24 [History] Montelukast [Singulair] 10 mg PO DAILY 01/19/24 [History] Pravastatin Sodium [Pravachol] 20 mg PO HS 01/19/24 [History] Spironolactone-Hctz 25-25Mg [Aldactazide 25-25 MG] 1 tab PO DAILY 01/19/24 [History] Timolol 0.5% Ophth Soln [Timoptic 0.5% Ophth Soln] 1 drop BOTH EYES DAILY 01/19/24 [History] Venlafaxine HCl ER [Effexor XR] 37.5 mg PO DAILY 01/19/24 [History] Acyclovir [Zovirax] 400 mg PO TID #21 tablet 01/22/24 [Rx] Prochlorperazine [Compazine] 5 mg PO Q8HR PRN #30 tab 01/22/24 [Rx] Psyllium Husk (with Sugar) [Metamucil Powder] 0 gm PO BID PRN #575 gm 01/22/24 [Rx] cefUROXime axetiL [Ceftin] 500 mg PO BID #10 tab 01/22/24 [Rx] Follow up Appointment(s)/Referral(s): [id number] [Other] - 1 Week Tomás Madsen MD [Primary Care Provider] - 1-2 days (office closed at time of discharge) Patient Instructions/Handouts: Community Acquired Pneumonia (DC) Discharge Disposition: HOME SELF-CARE
== END 2024-01-22 14:14 | disposition home or self-care (01) | DRG 194 ==
LOC: EC 13:07 → 4SSUR 14:00
PROVIDERS: ADMIT Hospitalist; ATTEND Hospitalist
DX: J15.9 Unspecified bacterial pneumonia (principal); J44.0 Chronic obstructive pulmonary disease with (acute) lower respiratory infection; J47.0 Bronchiectasis with acute lower respiratory infection; R74.8 Abnormal levels of other serum enzymes; R11.2 Nausea with vomiting, unspecified; K83.8 Other specified diseases of biliary tract; I10 Essential (primary) hypertension; E86.0 Dehydration; E78.5 Hyperlipidemia, unspecified; K86.89 Other specified diseases of pancreas; E03.9 Hypothyroidism, unspecified; Z79.890 Hormone replacement therapy; J84.10 Pulmonary fibrosis, unspecified; Z79.83 Long term (current) use of bisphosphonates; H91.90 Unspecified hearing loss, unspecified ear; Z79.51 Long term (current) use of inhaled steroids; Z87.01 Personal history of pneumonia (recurrent); Z87.891 Personal history of nicotine dependence; Z90.49 Acquired absence of other specified parts of digestive tract; Z97.4 Presence of external hearing-aid; Z79.899 Other long term (current) drug therapy
CPT/HCPCS: 71046; 71250; 74181; 80053; 83690; 84145; 85025; 87040; 87449; 94640; 96360; 96361; 99285